=== PATIENT | male | born 1955 | race Caucasian/White ===

== ENCOUNTER → 2018-07-02 | Outpatient (CLI) | payer OTHER ==
--- NOTE | 2018-07-02 12:51 | US ---
EXAMINATION TYPE: US duplex aorta DATE OF EXAM: 07/02/2018 COMPARISON: NONE CLINICAL HISTORY: Z13.6 screening for CVD,R42 DIZZINESS,I70.213 DAVID. EXAM MEASUREMENTS: Abdominal Aorta: Proximal: 2.4 x 2.3cm Mid: not seen due to bowel gas and habitus Distal: not seen due to bowel gas and habitus Bifurcation: not seen not seen Very difficult patient to image due to morbid obese and bowel gas. Grayscale imaging performed. IMPRESSION: Exam is limited. Aneurysm is not excluded
--- NOTE | 2018-07-02 12:56 | US ---
EXAMINATION TYPE: US carotid duplex BILAT DATE OF EXAM: 07/02/2018 COMPARISON: NONE CLINICAL HISTORY: Z13.6 screening for CVD,R42 DIZZINESS,I70.213 DAVID. Morbidly obese patient that is very hard of hearing, smoker, no h/o stroke EXAM MEASUREMENTS: RIGHT: Peak Systolic Velocity (PSV) cm/sec ----- Right CCA: 90.8 ----- Right ICA: 91.9 ----- Right ECA: 90.1 ICA/CCA ratio: 1.0 RIGHT: End Diastole cm/sec ----- Right CCA: 19.3 ----- Right ICA: 25.9 ----- Right ECA: 17.6 LEFT: Peak Systolic Velocity (PSV) cm/sec ----- Left CCA: 63.6 ----- Left ICA: 76.5 ----- Left ECA: 101.8 ICA/CCA ratio: 1.2 LEFT: End Diastole cm/sec ----- Left CCA: 16.6 ----- Left ICA: 25.9 ----- Left ECA: 15.0 VERTEBRALS (direction of flow): Right Vertebral: Antegrade Left Vertebral: not seen after multiple attempts Rhythm: Normal Difficult patient to image due to short, thick neck Mild heterogeneous plaque at bilateral bulbs with no significant stenosis. Grayscale, color Doppler, spectral Doppler imaging performed of the carotid arteries. Waveform analys is does not show significant stenosis of the internal carotid arteries. IMPRESSION: No hemodynamic significant stenosis of the proximal internal carotid arteries bilaterall y by Doppler criteria, an indirect measurement of carotid stenosis.
== END | disposition home or self-care (01) ==
LOC: RADUSWWP 09:05
DX: I70.213 Atherosclerosis of native arteries of extremities with intermittent claudication, bilateral legs (principal); R42 Dizziness and giddiness; Z13.6 Encounter for screening for cardiovascular disorders
CPT/HCPCS: 93880; 93922; 93979